=== PATIENT | male | born 1970 | race Caucasian/White ===

== ENCOUNTER → 2016-11-30 | Outpatient (CLI) | payer OTHER | LOC: BMCIMAGING 09:44 | PROVIDERS: ATTEND Internal Medicine Rheumatology | DX: M79.642 Pain in left hand (principal); M25.561 Pain in right knee; M51.26 Other intervertebral disc displacement, lumbar region ==

== ENCOUNTER 2018-10-30 10:34 | Inpatient (IN) | payer OTHER ==
--- NOTE | 2018-10-30 13:03 | EDPHY ---
HPI/HX/ROS/PE/MDM - Data Points Imaging: I viewed and interpreted images myself Narrative: CHIEF COMPLAINT: Rash, arthralgias HPI: This patient is a healthy 48 year old male. Yesterday morning, he developed a very itchy scalp after showering. Following this, he developed a pruritic blotchy rash extended down his neck and back throughout the day. Around 6pm, he had developed arthralgias throughout his body and could barely walk due to discomfort in his left ankle. He took Benadryl and Aleve for relief, and was able to sleep. This morning on waking, he noted continued swelling and pain in his joints. He feels generally weak and fatigued. He endorses chills and night sweats. Denies any recent travel. No exposure to any uvula substances at work. No new medications. No new soaps or detergents. He takes rosuvastatin for hyperlipidemia. He does report have history of possible autoimmune disorder, but this has not been officially diagnosed and he reports unknown specific etiology of symptoms despite follow-up with specialists in the past. He has noted improvement in symptoms with dietary changes. He denies chest pain, shortness of breath, vomiting, diarrhea, urinary complaints or other associated symptoms. REVIEW OF SYSTEMS: A comprehensive 10 system review of systems is otherwise negative aside from elements mentioned in the history of present illness and medical decision making. PMH: Denies / possible autoimmune condition. 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 . at bedside. Does not abuse tobacco, drugs, or alcohol. PHYSICAL EXAM: General:Patient is alert, in no acute distress. ENT:Eyes are normal to inspection. ENT inspection normal. Neck: Normal inspection. Full range of motion. Respiratory:No respiratory distress. Breath sounds normal bilaterally. Cardiovascular: Regular rate and rhythm. Strong peripheral pulses. Normal cap refill. Abdomen:The abdomen is nontender to palpation. There are no peritoneal signs. There are normal bowel sounds. Back: Normal to inspection. No tenderness to palpation. Skin: Redness over the top of the buttocks. Scattered red maculopapular rash over anterior torso and arms. Normal color. Warm and dry. Extremities: Mild swelling and tenderness diffusely across joints. No signs of trauma. Full range of motion. Neuro: Oriented x3. Normal motor function. Normal sensory function. (Bhanu Lam) ED Course: I took over care of this patient at 3:00 p.m.. Please see above for further details. This patient is to be evaluated by Infectious Disease prior to disposition. 4:00 p.m., this patient was seen and evaluated by Infectious Disease doctor Ben Dao. He is asking that we admit the patient to the hospitalist service overnight. He has ordered HIV, syphilis and rheumatoid factor labs on the patient. He wants to evaluate the patient in the hospital in the morning. Hospitalist paged. 4:30 p.m., spoke with on-call hospitalist Dr. Harding. Case discussed in detail with him. He accepts the patient for admission. The patient's remaining emergency department course under my care has been uneventful. The patient was admitted in stable condition. (Prisca Cisneros) This patient is a 48 year old male presenting with arthralgias and rash. Plan for labs including CBC, chemistries, LFTs, coag panel, UA, ESR, CRP, blood cultures, UA. Plan to administer 125mg IV Solumedrol for symptom relief. 13:00 Performed bedside US. Procedure: Bedside US Limited bedside ultrasound was performed and interpreted by myself for the indication of: generalized arthralgias and swelling, r/o pericardial effusion. The exam was performed utilizing the thoracoabdominal emergency ultrasound protocol. Limited transthoracic echocardiogram: The pericardium was visualized and found to be negative for pericardial fluid. The study was negative for pericardial effusion. Limited abdominal ultrasound. 1) The right upper quadrant was visualized and was found to be negative for intraperitoneal fluid. 2) The left upper quadrant was visualized and found to be negative for intraperitoneal fluid. The study was felt to be negative for free intraperitoneal fluid. The images were saved on the ultrasound database. The procedure was performed by myself, Dr. Lam. 14:12 Patient is febrile. Plan to administer 1g PO Tylenol for fever. 14:[address] Dao, infectious disease specialist. He will come to evaluate the patient around 15:30 today. Patient is currently hemodynamically stable. Depending on ID evaluation, plan for admission vs. outpatient followup. 15:00 Care of this patient transferred to Dr. Cisneros at shift change. ( Bhanu Lam) - Data Points Imaging Results: Imaging Impressions Chest X-Ray 10/30/18 13:07 Impression: 1. No active cardiopulmonary disease seen. Laboratory Results: Laboratory Results 10/30/18 14:03 10/30/18 12:58 10/30/18 10/30/18 10/30/18 14:03 14:03 12:58 WBC RBC Hgb Hct 45.0 % % (40.0-51.0) MCV MCH MCHC RDW Plt Count MPV Neut % (Auto) Lymph % (Auto) Hoke % (Auto) Eos % (Auto) Baso % (Auto) Nucleat RBC Rel Count Absolute Neuts (auto) Absolute Lymphs (auto) Absolute Monos (auto) Absolute Eos (auto) Absolute Basos (auto) Absolute Nucleated RBC Immature Gran % Immature Gran # ESR < 1 MM/HR MM/HR (0-15) PT INR APTT Sodium Potassium Chloride Carbon Dioxide Anion Gap BUN Creatinine Estimated GFR Glucose Calcium Ferritin 185.0 ng/mL ng/mL (17.9-464.0) Total Bilirubin Conjugated Bilirubin Unconjugated Bilirubin AST ALT Alkaline Phosphatase C-Reactive Protein 28.6 mg/L H mg/L (<10.0) Total Protein Albumin Streptozyme 80 IU/mL IU/mL (<=200) 10/30/18 10/30/18 10/30/18 12:58 12:58 12:58 WBC 11.64 10^3/uL H 10^3/uL (3.80-9.50) RBC 5.14 10^6/uL 10^6/uL (4.40-6.38) Hgb 16.2 g/dL g/dL (13.7-17.5) Hct 46.7 % % (40.0-51.0) MCV 90.9 fL fL (81.5-99.8) MCH 31.5 pg pg (27.9-34.1) MCHC 34.7 g/dL g/dL (32.4-36.7) RDW 13.0 % % (11.5-15.2) Plt Count 178 10^3/uL 10^3/uL (150-400) MPV 12.0 fL H fL (8.7-11.7) Neut % (Auto) 91.6 % H % (39.3-74.2) Lymph % (Auto) 5.2 % L % (15.0-45.0) Hoke % (Auto) 2.8 % L % (4.5-13.0) Eos % (Auto) 0.0 % L % (0.6-7.6) Baso % (Auto) 0.1 % L % (0.3-1.7) Nucleat RBC Rel Count 0.0 % % (0.0-0.2) Absolute Neuts (auto) 10.65 10^3/uL H 10^3/uL (1.70-6.50) Absolute Lymphs (auto) 0.61 10^3/uL L 10^3/uL (1.00-3.00) Absolute Monos (auto) 0.33 10^3/uL 10^3/uL (0.30-0.80) Absolute Eos (auto) 0.00 10^3/uL L 10^3/uL (0.03-0.40) Absolute Basos (auto) 0.01 10^3/uL L 10^3/uL (0.02-0.10) Absolute Nucleated RBC 0.00 10^3/uL 10^3/uL (0-0.01) Immature Gran % 0.3 % % (0.0-1.1) Immature Gran # 0.04 10^3/uL 10^3/uL (0.00-0.10) ESR PT 13.9 SEC SEC (12.0-15.0) INR 1.05 (0.83-1.16) APTT 25.8 SEC SEC (23.0-38.0) Sodium 136 mEq/L mEq/L (135-145) Potassium 3.9 mEq/L mEq/L (3.5-5.2) Chloride 109 mEq/L mEq/L (97-110) Carbon Dioxide 20 mEq/l L mEq/l (22-31) Anion Gap 7 mEq/L mEq/L (6-14) BUN 25 mg/dL H mg/dL (7-23) Creatinine 0.8 mg/dL mg/dL (0.7-1.3) Estimated GFR > 60 Glucose 138 mg/dL H mg/dL (70-100) Calcium 8.9 mg/dL mg/dL (8.5-10.4) Ferritin Total Bilirubin 1.0 mg/dL mg/dL (0.1-1.4) Conjugated Bilirubin 0.2 mg/dL mg/dL (0.0-0.5) Unconjugated Bilirubin 0.8 mg/dL mg/dL (0.0-1.1) AST 21 IU/L IU/L (17-59) ALT 40 IU/L IU/L (21-72) Alkaline Phosphatase 52 IU/L IU/L (38-126) C-Reactive Protein Total Protein 5.9 g/dL L g/dL (6.3-8.2) Albumin 3.6 g/dL g/dL (3.5-5.0) Streptozyme Medications Given: Discontinued Medications Acetaminophen (Tylenol) 1,000 mg PO EDNOW ONE Stop: 10/30/18 14:13 Last Admin: 10/30/18 14:14 Dose: 1,000 mg Sodium Chloride (Ns) 1,000 mls @ 0 mls/hr IV EDNOW ONE; Wide Open PRN Reason: Protocol Stop: 10/30/18 13:08 Last Admin: 10/30/18 13:18 Dose: 1,000 mls Methylprednisolone Sodium Succinate (Solu-Medrol) 125 mg IVP EDNOW ONE Stop: 10/30/18 13:08 Last Admin: 10/30/18 13:19 Dose: 125 mg Microbiology Results: MICROBIOLOGY 10/30/18 14:07 Nasal, Sinus - Swab Respiratory Panel (PCR) - Final No Organism Detected By Pcr General Time Seen by Provider: 10/30/18 12:45 Initial Vital Signs: Initial Vital Signs Temperature (C) 36.5 C 10/30/18 10:42 Heart Rate 46 L 10/30/18 10:42 Respiratory Rate 18 10/30/18 10:42 Blood Pressure 113/71 10/30/18 10:42 O2 Sat (%) 97 10/30/18 10:42 O2 Delivery Mode Room Air Allergies/Adverse Reactions: No Known Allergies Allergy (Unverified 10/30/18 10:42) Home Medications: Medication Instructions Recorded Rosuvastatin Calcium [Crestor 20mg 20 mg PO HS 10/30/18 (*)] Colchicine 1.2 mg PO DAILY #60 tablet 11/01/18 Hydrocortisone 0.2% Valerate 1 judy TP Q6HRS PRN cream 11/01/18 [Westcort 0.2% Cream (*)] diphenhydrAMINE [Benadryl 25 MG 25 - 50 mg PO Q6HRS PRN cap 11/01/18 (*)] Departure - Departure Disposition: [facility] Clinical Impression: Rash, Reactive arthritis Condition: Good Report Scribed for: Bhanu Lam Report Scribed by: Janina Mauricio Date of Report: 10/30/18 Time of Report: 14:53 Physician Review and Approval Statement: Portions of this note were transcribed by an ED scribe. I personally performed the history, physical exam, and medical decision making; and confirm the accuracy of the information in the transcribed note.
[2018-10-30] MEDS ORDERED: methylPREDNISolone SOD SUCC 125 MG/2 ML VIAL IVP ONE (13:07)
[2018-10-30] MEDS ORDERED: NS 1,000 ML IV ONE (13:07)
[2018-10-30 13:23] LABS: PLATELET COUNT 178 10^3/uL (150-400)
[2018-10-30 13:31] LABS: INR 1.05 (0.83-1.16); PROTIME(PATIENT) 13.9 SEC (12.0-15.0)
--- NOTE | 2018-10-30 13:55 | CPEKG ---
Test Reason : OPEN Blood Pressure : / mmHG Vent. Rate : 073 BPM Atrial Rate : 072 BPM P-R Int : 153 ms QRS Dur : 091 ms QT Int : 406 ms P-R-T Axes : 073 -52 049 degrees QTc Int : 448 ms Sinus rhythm Left anterior fascicular block Abnormal R-wave progression, early transition Confirmed by Bhanu Lam ([id number]) on 10/30/2018 1:54:48 PM Referred By: Bhanu Lam Confirmed By:Bhanu Lam
[2018-10-30] MEDS ORDERED: ACETAMINOPHEN 500 MG TAB PO ONE (14:12)
--- NOTE | 2018-10-30 15:30 | PDCONSULT ---
Line Tender Note: Infectious Diseases Consult Note Impression: 48-year-old man with migrating poly arthralgias with a rapidly evolving rash. Infectious differential includes acute rheumatic fever, although less likely with a normal ASO. Ruling out HIV infection and syphilis infection as possibilities. Rheumatologic condition or inherited periodic febrile syndrome or possible, particularly considering his [place] heritage. Do not see an indication for IV antibiotics at this point as this is more consistent with an noninfectious inflammatory syndrome, will continue to follow through tomorrow and ensure longitudinal follow-up. 1. 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 Systemic rash and febrile syndrome with out LFT changes or thrombocytopenia 3. History of unclear autoimmune type condition 4. Neutrophilic leukocytosis Plan: 1. Agree with corticosteroid use 2. Sent ferritin level and ASO 3. Send HIV, syphilis antibodies, MARTI, rheumatoid factor 4. ID will follow and ensure longitudinal follow-up 5. No absolute indication for IV antibiotics at this time Ben Dao MD Infectious Diseases Chief Complaint: Fever Requesting Provider: Reason for Referral: Consultation was requested by regarding antimicrobial management. HPI: 48-year-old man who presents with approximately 1 day of fevers, migrating arthralgias, and migrating rash. He was in his usual state of good health until the evening prior to this ED visit when he noted rash over his forehead with some pruritus and joint pains in his ankles bilaterally knees bilaterally and wrists bilaterally. He also notes swelling and pain in the joints of his fingers to the degree that he was unable to pick things of the evening prior to admission. He took Benadryl in the evening and was able to sleep some, but woke in the morning to pain primarily in the right ankle which had migrated from pain primarily in the left ankle, and a rash that had changed from over his face and neck is to his trunk, then to his upper and lower extremities. He notes fever starting last evening as well that continued into today. He has a very mild dull sensation of headache that is new and also photophobia, but no neck stiffness or pain. Notes no allergies in the past and he has not started any new medications, no new soaps or detergents, and no other new items that would have contacted diffusely over his body. Currently his joint pain is directed towards his right ankle which remains swollen in his bilateral wrists which are both swollen and have a more intense rash. Overall he feels the swelling in his joints is decreased except that his wrist. He does notice well a rash over his sacrum that developed last evening and persists through today. He has never had a syndrome like this in the past. He has not with recurrent abdominal discomfort for many years that seems to be associated with constipation that is larger resolved with dietary changes that were self prescribed. Approximately 15 years ago he 1st developed vague symptoms that were thought to be related to an autoimmune condition but were unable to be diagnosed definitively. His notes that any viral illnesses seem to affect him disproportionately, including a year where both he and their son with cystic fibrosis developed influenza H1N1 with their son having a relatively mild illness and the patient requiring hospitalization. He denies sinus fullness, sore throat although he did have difficulty swallowing acetaminophen but was able to eat his dinner last evening and then some chips while in the waiting room today. No cough, chest pain, diarrhea, dysuria. 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 ROS: 10 organ systems reviewed; pertinent positives and negatives listed in the HPI, all other organ systems negative. Physical Exam: VS: Reviewed Gen: No acute distress; Breathing comfortably without exogenous oxygen; Able to speak in complete sentences Eyes: No conjunctival injection; No scleral icterus; keeps his eyes closed with the overhead light on in the room but able to open without irritation on the overhead light is off HENT: No gross deformities Neck: No limitation in range of motion Pulm: Breath sounds clear to the bases bilaterally; No wheeze, rhonchi, or rales CV: Normal S1 and S2; Regular rate and rhythm; No murmurs, rubs, or gallops; No lower extremity edema Abd: Not distended; Normo-active bowel sounds; Soft; Non-tender Skin: A full skin exam including exposed bilateral upper extremities, bilateral lower extremities to the knees, face, neck, abdomen, chest, and back performed; erythematous macules and patches with a circular lesion of approximately 2 cm diameter over the medial aspect of the left knee, with 2-3 smaller satellite type erythematous macules around the left knee, the anterior aspect of both wrists with erythematous macules that sam to palpation, erythematous patch at the sacrum extending to the superior portion of the gluteal fold; erythematous macules over the extensor surfaces of the elbows bilaterally MSK: Bilateral wrists with erythema and edema common hands bilaterally extending to the fingers swollen without erythema, right ankle with edema over the medial and lateral malleoli, bilateral knees without edema or joint effusions, left ankle without edema or effusion, no edema or joint effusion of the elbows or shoulders Ext: No clubbing or cyanosis Neuro: Awake and alert Psych: Normal mood and affect Labs/Imaging: All microbiology testing (culture and non-culture) reviewed in the medical record. Personally reviewed and interpreted the images of the following radiographs: Chest x-ray from 10/30 showing clear lung dal[place]. Selected Entries 10/30/18 10/30/18 12:00 14:17 Temperature (C) 38.3 C Blood Pressure 106/72 Mean Arterial 117 H Pressure (MAP) Laboratory Tests 07/05/16 11/30/16 11/30/16 07:21 09:28 09:28 WBC 7.90 Hgb 16.0 Plt Count 236 Absolute Neuts (auto) 4.48 Absolute Lymphs (auto) 2.74 Absolute Eos (auto) 0.14 ESR 6 Creatinine Total Bilirubin 0.5 AST 23 ALT 38 Ferritin C-Reactive Protein < 5.0 IgA Rheum Factor Semi-Quant < 8.6 Anti-Cycl Citrul Peptide MARTI Titer Tiss Transglutamin IgA HLA-B27 HLA-DQA1 Streptozyme 11/30/16 11/30/16 10/30/18 09:28 09:28 12:58 WBC 11.64 H Hgb 16.2 Plt Count 178 Absolute Neuts (auto) 10.65 H Absolute Lymphs (auto) 0.61 L Absolute Eos (auto) 0.00 L ESR Creatinine Total Bilirubin AST ALT Ferritin C-Reactive Protein IgA 224 Rheum Factor Semi-Quant Anti-Cycl Citrul Peptide < 15.6 MARTI Titer <1:40 Tiss Transglutamin IgA <1.2 HLA-B27 Negative HLA-DQA1 01,03 Streptozyme 10/30/18 10/30/18 10/30/18 12:58 12:58 14:03 WBC Hgb Plt Count Absolute Neuts (auto) Absolute Lymphs (auto) Absolute Eos (auto) ESR < 1 Creatinine 0.8 Total Bilirubin 1.0 AST 21 ALT 40 Ferritin C-Reactive Protein 28.6 H IgA Rheum Factor Semi-Quant Anti-Cycl Citrul Peptide MARTI Titer Tiss Transglutamin IgA HLA-B27 HLA-DQA1 Streptozyme 10/30/18 14:03 WBC Hgb Plt Count Absolute Neuts (auto) Absolute Lymphs (auto) Absolute Eos (auto) ESR Creatinine Total Bilirubin AST ALT Ferritin Pending C-Reactive Protein IgA Rheum Factor Semi-Quant Anti-Cycl Citrul Peptide MARTI Titer Tiss Transglutamin IgA HLA-B27 HLA-DQA1 Streptozyme Pending
[2018-10-30] MEDS ORDERED: ONDANSETRON 4 MG/2 ML VIAL IVP PRN (17:27)
[2018-10-30] MEDS ORDERED: ONDANSETRON DISINTEGRATING 4 MG TAB PO PRN (17:27)
--- NOTE | 2018-10-30 17:49 | PDGENHP ---
History and Physical - Chief Complaint Fevers, arthralgia, migrating rash - History of Present Illness HPI: This is a 48 y/o male with no significant past medical history presenting to the emergency via private vehicle after experiencing a 1-day episode of fevers, arthralgia and migrating rash. Yesterday, he noticed a pruritic rash on his scalp after showering. He went to work and thought nothing much about the rash however as the day progressed, the rash then seemed to spread throughout his body to his back, abdomen, sacrum, wrists, knees and ankles. By nighttime, he developed arthralgia and swelling most notably to his wrists and ankles and took Benadryl and Aleve so he could sleep. During the night, he endorses fevers and night sweats. He woke up this morning and confirmed mild improvement to his condition but continues to have a rash and joint swelling notable to left wrist and right ankle. Supposedly, he has had similar symptoms 15 years prior and was thought possibly autoimmune but with no definitive answer. No recent travels, no new medications, no new soap or detergents. He endorses fevers, night sweats. Denies chest pains, palpitations, nausea, vomiting, diarrhea. He is being admitted for observation and monitoring. Past Medical History: Hyperlipidemia, possible autoimmune disorder Past Surgical History: Knee scope (a few years ago) Social: , lives in [place]. Denies etoh, tobacco or illicit drug use. Works at the [employer]. History Information - Allergies/Home Medication List Allergies/Adverse Reactions: No Known Allergies Allergy (Unverified 10/30/18 10:42) Home Medications: Rosuvastatin Calcium [Crestor 20mg (*)] 20 mg PO HS 10/30/18 [Last Taken ] I have personally reviewed and updated: family history, medical history, social history, surgical history Past Medical History: See HPI list - Surgical History Additional surgical history: See HPI list - Family History Additional family history: Son with DM I and cystic fibrosis. Mother rheumatoid arthritis. Father nerve problems - Social History Smoking Status: Never smoked Alcohol Use: None Drug Use: None Review of Systems Review of Systems: ROS: 10pt was reviewed & negative except for what was stated in HPI & below Skin: Reports: change in color (reports sensation is like scalding coffee) Physical Exam Physical Exam: Lab data and imaging were reviewed. Case discussed with admitting physician, Dr. Julio C Harding Per ED note, bedside US revealed generalized arthralgias and swelling, r/o pericardial effusion and abdominal ultrasound RUQ no intraperitoneal fluid, LUQ negative for intraperitoneal fluid. WBC: 11.64 ESR: <1 CRP: 28.6 CXR: no Acute processes EKG: SR, LAFB RF: 9.6 Resp panel PCR: Negative Temp Pulse Resp BP Pulse Ox 37.3 C 70 16 108/72 94 10/30/18 16:36 10/30/18 16:36 10/30/18 16:36 10/30/18 16:36 10/30/18 16:36 Constitutional: uncomfortable, other (Pleasant, cooperative gentleman who appears fatigued and weak) Eyes: PERRL, anicteric sclera, EOMI Ears, Nose, Mouth, Throat: moist mucous membranes, hearing normal, ears appear normal, no oral mucosal ulcers Cardiovascular: regular rate and rhythym, no murmur, rub, or gallop, No edema Peripheral Pulses: 2+: dorsalis-pedis (R) (Radial 2+), dorsalis-pedis (L) ( Radial 2+) Respiratory: no respiratory distress, no rales or rhonchi, clear to auscultation Gastrointestinal: normoactive bowel sounds, soft, non-tender abdomen, no palpable masses Genitourinary: no bladder fullness, no bladder tenderness Skin: erythema, rash Musculoskeletal: joint effusion, joint tenderness, pain with ROM Neurologic: AAOx3, sensation intact bilaterally, CN II-XII Intact Psychiatric: interacting appropriately, not anxious, not encephalopathic, thought process linear Lymph, Heme, Immunologic: no cervical LAD, no supraclavicular LAD Lab Data & Imaging Review 10/30/18 14:03 10/30/18 12:58 WBC 11.64 10^3/uL (3.80-9.50) H 10/30/18 12:58 RBC 5.14 10^6/uL (4.40-6.38) 10/30/18 12:58 Hgb 16.2 g/dL (13.7-17.5) 10/30/18 12:58 Hct 45.0 % (40.0-51.0) 10/30/18 14:03 MCV 90.9 fL (81.5-99.8) 10/30/18 12:58 MCH 31.5 pg (27.9-34.1) 10/30/18 12:58 MCHC 34.7 g/dL (32.4-36.7) 10/30/18 12:58 RDW 13.0 % (11.5-15.2) 10/30/18 12:58 Plt Count 178 10^3/uL (150-400) 10/30/18 12:58 MPV 12.0 fL (8.7-11.7) H 10/30/18 12:58 Neut % (Auto) 91.6 % (39.3-74.2) H 10/30/18 12:58 Lymph % (Auto) 5.2 % (15.0-45.0) L 10/30/18 12:58 [place] % (Auto) 2.8 % (4.5-13.0) L 10/30/18 12:58 Eos % (Auto) 0.0 % (0.6-7.6) L 10/30/18 12:58 Baso % (Auto) 0.1 % (0.3-1.7) L 10/30/18 12:58 Nucleat RBC Rel Count 0.0 % (0.0-0.2) 10/30/18 12:58 Absolute Neuts (auto) 10.65 10^3/uL (1.70-6.50) H 10/30/18 12:58 Absolute Lymphs (auto) 0.61 10^3/uL (1.00-3.00) L 10/30/18 12:58 Absolute Monos (auto) 0.33 10^3/uL (0.30-0.80) 10/30/18 12:58 Absolute Eos (auto) 0.00 10^3/uL (0.03-0.40) L 10/30/18 12:58 Absolute Basos (auto) 0.01 10^3/uL (0.02-0.10) L 10/30/18 12:58 Absolute Nucleated RBC 0.00 10^3/uL (0-0.01) 10/30/18 12:58 Immature Gran % 0.3 % (0.0-1.1) 10/30/18 12:58 Immature Gran # 0.04 10^3/uL (0.00-0.10) 10/30/18 12:58 ESR < 1 MM/HR (0-15) 10/30/18 14:03 PT 13.9 SEC (12.0-15.0) 10/30/18 12:58 INR 1.05 (0.83-1.16) 10/30/18 12:58 APTT 25.8 SEC (23.0-38.0) 10/30/18 12:58 Sodium 136 mEq/L (135-145) 10/30/18 12:58 Potassium 3.9 mEq/L (3.5-5.2) 10/30/18 12:58 Chloride 109 mEq/L (97-110) 10/30/18 12:58 Carbon Dioxide 20 mEq/l (22-31) L 10/30/18 12:58 Anion Gap 7 mEq/L (6-14) 10/30/18 12:58 BUN 25 mg/dL (7-23) H 10/30/18 12:58 Creatinine 0.8 mg/dL (0.7-1.3) 10/30/18 12:58 Estimated GFR > 60 10/30/18 12:58 Glucose 138 mg/dL (70-100) H 10/30/18 12:58 Calcium 8.9 mg/dL (8.5-10.4) 10/30/18 12:58 Ferritin 185.0 ng/mL (17.9-464.0) 10/30/18 14:03 Total Bilirubin 1.0 mg/dL (0.1-1.4) 10/30/18 12:58 Conjugated Bilirubin 0.2 mg/dL (0.0-0.5) 10/30/18 12:58 Unconjugated Bilirubin 0.8 mg/dL (0.0-1.1) 10/30/18 12:58 AST 21 IU/L (17-59) 10/30/18 12:58 ALT 40 IU/L (21-72) 10/30/18 12:58 Alkaline Phosphatase 52 IU/L (38-126) 10/30/18 12:58 C-Reactive Protein 28.6 mg/L (<10.0) H 10/30/18 12:58 Total Protein 5.9 g/dL (6.3-8.2) L 10/30/18 12:58 Albumin 3.6 g/dL (3.5-5.0) 10/30/18 12:58 Rheum Factor Semi-Quant 9.6 IU/L (<12.0) 10/30/18 14:02 Streptozyme 80 IU/mL (<=200) 10/30/18 14:03 Assessment & Plan Plan: This is a 48 y/o male with no past medical history presenting with acute onset of fevers, arthralgia and migrating rash. Supposedly he had similar symptoms 15 years ago with no definitive answer as to what it could be. He endorses generalized fatigue and weakness. Differential diagnoses are the following but not limited to: reactive arthritis, rheumatoid arthritis, syphilis. 1. Arthralgia and migrating rash: ID Dr. Dao has evaluated pt. IV abx not recommended at this time. -Pt febrile while in ED at 38.3. Tylenol 1g given and has since been afebrile at 36.7 which I personally took one hour ago. -Received IVP 125mg Solu-Medrol in ED; will hold on any other steroids until tomorrow. Will review AM CRP. Consider continue PO steroids in AM. CRP tonight is 28.6, ESR <1. CBC/BMP in AM. We will treat acute symptoms however the pt may need to f/u outpatient with ID and hematology. -Benadryl and Tylenol PRN -Respiratory panel negative -Blood culture pending -DNA/UA/HIV/MARTI/Syphilis pending; Rheumatoid factor 9.6 -Mild leukocytosis (11.64) 2. Hyperlipidemia: on rosuvastatin Diet: Regular Code: Full VTE ppx: Lovenox subq Dispo: Admit to obs
--- NOTE | 2018-10-30 17:49 | HOSPPROG ---
Hospitalist Progress Note Assessment/Plan: 48 yo Male admitted with systemic rash and arthralgias. Pt seen with our [employer] DEVELOPER. Agree with her H&P and A&P per her note. intermittent fever ID is following #Fever #Systemic Rash #Arthralgias Etiology is unclear W/u is pending ID is following, decision for abx per ID not on any home meds Subjective: no cp or sob. no n/v. +fever Objective: Vital Signs Temp Pulse Resp BP Pulse Ox 37.3 C 70 16 108/72 94 10/30/18 16:36 10/30/18 16:36 10/30/18 16:36 10/30/18 16:36 10/30/18 16:36 PT 13.9 SEC (12.0-15.0) 10/30/18 12:58 INR 1.05 (0.83-1.16) 10/30/18 12:58 - Physical Exam Constitutional: no apparent distress Eyes: PERRL, EOMI Ears, Nose, Mouth, Throat: moist mucous membranes, hearing normal Cardiovascular: regular rate and rhythym, No edema Respiratory: no respiratory distress Gastrointestinal: No distension Skin: warm Neurologic: AAOx3 Psychiatric: interacting appropriately, not anxious, not encephalopathic ICD10 Worksheet Patient Problems: Problems Problem Status Onset Rash Acute Reactive arthritis Acute
[2018-10-31 05:24] LABS: PLATELET COUNT 164 10^3/uL (150-400)
[2018-10-31] MEDS: diphenhydrAMINE 25 MG CAP PO PRN ×3 (07:21→20:22)
[2018-10-31] MEDS: ENOXAPARIN 40 MG/0.4 ML SYR SC SCH (07:22)
--- NOTE | 2018-10-31 09:30 | PCMIDPN ---
Assessment/Plan: Assessment: 48-year-old man with migrating polyarthralgias in rash without a clear underlying diagnosis. Overall is improved with a single dose of steroids in the emergency department yesterday with no evidence for an infection. S normal ferritin level suggests this is not at all onset Still's disease and negative rheumatoid factor make rheumatoid arthritis less likely. Serologic testing remains in process which can be followed as an outpatient. 1. 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 Systemic rash in febrile syndrome without LFT changes or thrombocytopenia; improved the 3. History of an unclear autoimmune type condition 4. Neutrophilic leukocytosis present on 80 presentation, increased neutrophilia likely related to steroid dose Plan: 1. Will follow pending HIV testing informed patient of result 2. From ID perspective can discharge; would discharge with prednisone 20 mg per day x1 week 3. ID follow-up being arranged and will further inform need for steroids and further evaluation as an outpatient Ben Dao MD Infectious Diseases 10/31/18 09:34 Subjective: No fever or chills since yesterday. Overall feels better with resolution of photophobia. Right ankle pain has resolved but still feel stiff, left ankle pain completely resolved. No swelling in the knees bilaterally but does still feel it is most joints are stiff. Overall his wrist swelling is decreased but not resolved. States the erythematous lesions on the anterior aspect of the wrist formed blisters in draining clear fluid. The rash and pruritus of now extending to his neck and return to his scalp which is where the lesions initially began. Objective: Vital Signs Temp Pulse Resp BP Pulse Ox 36.8 C 82 12 98/71 L 97 10/31/18 07:47 10/31/18 07:47 10/31/18 07:47 10/31/18 07:47 10/31/18 07:47 Laboratory Results 10/31/18 05:04 10/31/18 05:04 10/30/18 10/31/18 11/01/18 05:59 05:59 05:59 Intake Total 240 Output Total 1050 Balance -810 ESR < 1 MM/HR (0-15) 10/30/18 14:03 C-Reactive Protein 71.0 mg/L (<10.0) H 10/31/18 05:04 Microbiology 10/30/18 14:07 Nasal, Sinus - Swab Respiratory Panel (PCR) - Final No Organism Detected By Pcr Laboratory Tests 10/30/18 10/30/18 10/30/18 12:58 12:58 12:58 WBC 11.64 H Hgb 16.2 Plt Count 178 Absolute Neuts (auto) 10.65 H Absolute Lymphs (auto) 0.61 L Absolute Eos (auto) 0.00 L Creatinine 0.8 AST 21 ALT 40 C-Reactive Protein 28.6 H Total Protein 5.9 L Rheum Factor Semi-Quant MARTI Screen Anti-ds DNA IgG Ab Syphilis IgG/IgM Ab HIV (1&2) Ag & Ab Refer Streptozyme 10/30/18 10/30/18 10/30/18 14:02 14:03 16:30 WBC Hgb Plt Count Absolute Neuts (auto) Absolute Lymphs (auto) Absolute Eos (auto) Creatinine AST ALT C-Reactive Protein Total Protein Rheum Factor Semi-Quant 9.6 MARTI Screen Anti-ds DNA IgG Ab Syphilis IgG/IgM Ab NONREACTIVE HIV (1&2) Ag & Ab Refer Streptozyme 80 10/30/18 10/30/18 10/31/18 17:17 17:17 05:04 WBC 14.07 H Hgb 14.5 Plt Count 164 Absolute Neuts (auto) 12.38 H Absolute Lymphs (auto) 1.09 Absolute Eos (auto) 0.00 L Creatinine AST ALT C-Reactive Protein Total Protein Rheum Factor Semi-Quant MARTI Screen Pending Anti-ds DNA IgG Ab Pending Syphilis IgG/IgM Ab HIV (1&2) Ag & Ab Refer Pending Streptozyme 10/31/18 05:04 WBC Hgb Plt Count Absolute Neuts (auto) Absolute Lymphs (auto) Absolute Eos (auto) Creatinine 0.7 AST ALT C-Reactive Protein 71.0 H Total Protein Rheum Factor Semi-Quant MARTI Screen Anti-ds DNA IgG Ab Syphilis IgG/IgM Ab HIV (1&2) Ag & Ab Refer Streptozyme - Physical Exam General Appearance: no apparent distress, non-toxic EENT: other (No oropharyngeal erythema, no tonsillar enlargement), No scleral icterus, No photophobia, No thrush Respiratory: lungs clear, normal breath sounds, No respiratory distress, No crackles, No wheezing Neck: full range of motion, supple Cardiac/Chest: regular rate, rhythm, No bradycardia, No tachycardia, No diastolic murmur, No systolic murmur Extremities: other (Edema of the wrists bilaterally, improved from yesterday; anterior wrist erythematous lesions without surrounding erythema; large erythematous blanching patch on the left anterior forearm, scattered erythematous patches on the lower extremities; right ankle edema has resolved, no left ankle edema; no edema or joint effusions in the knees bilaterally; no joint swelling or effusion of the elbows bilaterally) Abdomen: normal bowel sounds, non-tender, soft, No distended, No guarding, No hepatomegaly, No splenomegaly Skin: other (Scattered erythematous patches and plaques the bilateral upper lower extremities; sparing of the anterior and posterior trunk; neck with blanching erythematous macules) Neuro/Psych: alert, normal mood/affect, oriented x 3, No confused - Time Spent With Patient Time Spent with Patient: greater than 35 minutes Time Spent with Patient: Greater than 35 minutes spent on this patients care, greater than 50% of time spent counseling, educating, and coordinating care regarding the above mentioned plan. ICD10 Worksheet Patient Problems: Problems Problem Status Onset Rash Acute Reactive arthritis Acute
--- NOTE | 2018-10-31 10:29 | ASMTCMCOM ---
CM Note CM Note Notes: Pt is a 48 y/o man admitted for fever, arthralgia, and migrating rash. ID has been consulted. ID is recommending prednisone 20mg/daily for 1 week. Pt should not have any d/c needs. CM available for changes. Plan: Independent Date Signed: 10/31/2018 10:29 AM Electronically Signed By:LILO Reis
[2018-10-31] MEDS ORDERED: predniSONE 20 MG TAB PO SCH (11:45)
[2018-10-31] MEDS: ACETAMINOPHEN 325 MG TAB PO PRN ×2 (11:47→17:22)
--- NOTE | 2018-10-31 13:31 | HOSPPROG ---
Hospitalist Progress Note Assessment/Plan: This is a 48 y/o male with no significant past medical history presenting to the emergency via private vehicle after experiencing a 1-day episode of fevers, arthralgia and migrating polyarthralgia and rash. Yesterday, he noticed a pruritic rash on his scalp after showering that progressed. 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 This morning he felt better, but now is feeling poorly, needs to keep his eyes closed due to the discomfort of opening them. Will get an MRI today, reviewed his care w Dr Meyers. Subjective: Obi is feeling poorly, feels like his scalp is swelling, has some tenderness at the base of his neck. Left thumb is tender. Objective: Vital Signs Temp Pulse Resp BP Pulse Ox 37.4 C 93 32 H 124/74 H 97 10/31/18 13:00 10/31/18 13:00 10/31/18 11:44 10/31/18 13:00 10/31/18 13:00 Laboratory Results 10/31/18 05:04 10/31/18 05:04 10/30/18 10/31/18 11/01/18 05:59 05:59 05:59 Intake Total 240 Output Total 1050 Balance -810 PT 13.9 SEC (12.0-15.0) 10/30/18 12:58 INR 1.05 (0.83-1.16) 10/30/18 12:58 - Physical Exam Constitutional: uncomfortable Ears, Nose, Mouth, Throat: hearing normal Cardiovascular: regular rate and rhythym Respiratory: no respiratory distress Gastrointestinal: normoactive bowel sounds Skin: warm, other (top of his head is reddened, 3 small blisters on left wrist area, bicep areas are reddened) Neurologic: AAOx3 Psychiatric: interacting appropriately ICD10 Worksheet Patient Problems: Problems Problem Status Onset Rash Acute Reactive arthritis Acute
[2018-10-31] MEDS ORDERED: GADOBUTROL 10 ML VIAL IVP ONE (16:18)
[2018-10-31] MEDS: COLCHICINE 0.6 MG CAP/TAB PO SCH (17:22)
--- NOTE | 2018-10-31 20:47 | PDMN ---
Medical Necessity Medical necessity: Change to inpt as of 10/31/18 @ 16:10, meets inpt criteria per MD order and Systemic or infectious condition GRG. 48 y/o admitted w/ systemic gracie in febrile syndrome and migrating poly arthralgias and arthritis of lg joints. Upgraded to inpt for persistent rash, poly arthralgias, feelings of head/scalp swelling, MRI today shows deep scalp edema, further workup needed , est LOS>2MN for ongoing eval/management of above.
[2018-10-31] MEDS ORDERED: ROSUVASTATIN CALCIUM 20 MG TAB PO SCH (21:00)
[2018-11-01] MEDS: diphenhydrAMINE 25 MG CAP PO PRN (04:56)
[2018-11-01] MEDS: ACETAMINOPHEN 325 MG TAB PO PRN (04:56)
[2018-11-01 05:55] LABS: PLATELET COUNT 176 10^3/uL (150-400)
[2018-11-01] MEDS: ENOXAPARIN 40 MG/0.4 ML SYR SC SCH (08:25)
[2018-11-01] MEDS: COLCHICINE 0.6 MG CAP/TAB PO SCH (08:25)
[2018-11-01] MEDS ORDERED: HYDROCORTISONE 0.2% VALERATE CREAM TP PRN (11:27)
--- NOTE | 2018-11-01 11:27 | PCMIDPN ---
Assessment/Plan: Assessment: 48-year-old man with migrating polyarthralgias in rash without a clear underlying diagnosis. Although his underlying diagnosis remains unclear he does have a syndrome that is consistent with the auto inflammatory condition. Removed prednisone and other corticosteroids, systemically, from his medication list and will assess his response to colchicine. Left to give at least through this afternoon to determine if his symptoms will recur and/or if he needs an increased dose of colchicine. Remains no compelling indication that this is infectious syndrome that would warrant antibiotics. Reviewed the MRI personally there is no evidence for meningeal enhancement to suggest meningitis, and his photophobia has again resolved at least through the morning. Unclear significance of soft tissue swelling but it did correlate with where his symptoms were located yesterday. Will follow up again this afternoon to determine if dose change for colchicine necessary. 1. 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 Systemic rash in febrile syndrome without LFT changes or thrombocytopenia; improved the 3. History of an unclear autoimmune type condition 4. Neutrophilic leukocytosis present on presentation; stable Plan: 1. Continue colchicine 1.2 mg daily; increase to 2.4 mg for today's dose if symptoms return 2. Informed patient of negative HIV and syphilis test and Ben Dao MD Infectious Diseases 11/01/18 11:29 Subjective: No fever or chills yesterday or overnight. Migrating rash continues now to include his back and right flank. His posterior scalp pain and itching arm proved. Overall his pruritus is generally worse. He has no diarrhea with his dose of colchicine yesterday. No new symptoms today. Objective: Vital Signs Temp Pulse Resp BP Pulse Ox 36.8 C 74 16 94/63 L 94 11/01/18 08:00 11/01/18 08:00 11/01/18 08:00 11/01/18 08:00 11/01/18 08:00 Laboratory Results 11/01/18 05:02 11/01/18 05:02 10/31/18 11/01/18 11/02/18 05:59 05:59 05:59 Intake Total 2500 Balance 2500 ESR < 1 MM/HR (0-15) 10/30/18 14:03 C-Reactive Protein 71.0 mg/L (<10.0) H 10/31/18 05:04 Laboratory Tests 10/30/18 10/30/18 10/30/18 12:58 12:58 14:02 WBC Hgb Plt Count Absolute Neuts (auto) Absolute Lymphs (auto) Creatinine 0.8 Lactate Dehydrogenase C-Reactive Protein 28.6 H Rheum Factor Semi-Quant 9.6 MARTI Screen Syphilis IgG/IgM Ab HIV (1&2) Ag & Ab Refer Streptozyme 10/30/18 10/30/18 10/30/18 14:03 16:30 17:17 WBC Hgb Plt Count Absolute Neuts (auto) Absolute Lymphs (auto) Creatinine Lactate Dehydrogenase C-Reactive Protein Rheum Factor Semi-Quant MARTI Screen Syphilis IgG/IgM Ab NONREACTIVE HIV (1&2) Ag & Ab Refer NEGATIVE Streptozyme 80 10/30/18 10/31/18 10/31/18 17:17 05:04 05:04 WBC 14.07 H Hgb 14.5 Plt Count 164 Absolute Neuts (auto) 12.38 H Absolute Lymphs (auto) 1.09 Creatinine 0.7 Lactate Dehydrogenase C-Reactive Protein 71.0 H Rheum Factor Semi-Quant MARTI Screen 0.23 Syphilis IgG/IgM Ab HIV (1&2) Ag & Ab Refer Streptozyme 11/01/18 11/01/18 11/01/18 05:02 05:02 05:02 WBC 12.50 H Hgb 14.7 Plt Count 176 Absolute Neuts (auto) 9.93 H Absolute Lymphs (auto) 2.05 Creatinine 0.9 Lactate Dehydrogenase 500 C-Reactive Protein Rheum Factor Semi-Quant MARTI Screen Syphilis IgG/IgM Ab HIV (1&2) Ag & Ab Refer Streptozyme - Physical Exam General Appearance: no apparent distress, thin, non-toxic EENT: No scleral icterus Respiratory: lungs clear, normal breath sounds, No respiratory distress, No crackles, No wheezing Neck: full range of motion, supple Cardiac/Chest: regular rate, rhythm, No bradycardia, No tachycardia, No diastolic murmur, No systolic murmur Abdomen: normal bowel sounds, non-tender, soft, No distended, No guarding Skin: rash, erythema Neuro/Psych: alert, normal mood/affect, oriented x 3, No confused - Time Spent With Patient Time Spent with Patient: greater than 35 minutes Time Spent with Patient: Greater than 35 minutes spent on this patients care, greater than 50% of time spent counseling, educating, and coordinating care regarding the above mentioned plan. ICD10 Worksheet Patient Problems: Problems Problem Status Onset Rash Acute Reactive arthritis Acute
--- NOTE | 2018-11-01 15:17 | HOSPPROG ---
Hospitalist Progress Note Assessment/Plan: This is a 48 y/o male with no significant past medical history presenting to the emergency via private vehicle after experiencing a 1-day episode of fevers, arthralgia and migrating polyarthralgia and rash. He noticed a pruritic rash on his scalp after showering that progressed. 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 He has an appointment next week Subjective: Obi is feeling much better today, still has the rash, but topical hydrocortisone is helping. Objective: Vital Signs Temp Pulse Resp BP Pulse Ox 36.7 C 68 16 103/78 97 11/01/18 11:31 11/01/18 11:31 11/01/18 11:31 11/01/18 11:31 11/01/18 11:31 Laboratory Results 11/01/18 05:02 11/01/18 05:02 10/31/18 11/01/18 11/02/18 05:59 05:59 05:59 Intake Total 2500 Balance 2500 PT 13.9 SEC (12.0-15.0) 10/30/18 12:58 INR 1.05 (0.83-1.16) 10/30/18 12:58 - Physical Exam Constitutional: no apparent distress, appears nourished, uncomfortable Eyes: PERRL Ears, Nose, Mouth, Throat: hearing normal Respiratory: no respiratory distress Skin: warm, rash (mulitple areas including right back area, biceps, abd chest; it's a flat smooth red rash that varies in size) Neurologic: AAOx3 Psychiatric: interacting appropriately ICD10 Worksheet Patient Problems: Problems Problem Status Onset Rash Acute Reactive arthritis Acute
[2018-11-01] MEDS ORDERED: COLCHICINE 0.6 MG CAP/TAB PO ONE (16:06)
[2018-11-01 16:08] VITALS: BP 96/73
--- NOTE | 2018-11-01 16:47 | GDS ---
[f rep st] DISCHARGE SUMMARY DISCHARGE DIAGNOSES: 1. 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 2. Systemic rash with afebrile syndrome. 3. History of unclear autoimmune type condition. 4. Leukocytosis. 5. Hyperlipidemia. HISTORY OF PRESENT ILLNESS: Briefly, Obi is a very nice 48-year-old gentleman with no significant past medical history, who presented to the emergency room after experiencing a 1-day episode of fevers, arthralgias, and migrating polyarthralgia, and rash. He noticed a rash on his scalp after his showering that progressed. He was treated with prednisone without much improvement. He was starting to feel like his head and neck were swelling during his hospital stay. A brain MRI was performed that showed bilateral posterior deep scalp soft tissue abnormal signal intensity, edema, and enhancement which is nonspecific. Different diagnoses include autoimmune disorder, scalp lymphoma, anasarca among other etiologies. He had no acute infarct, acute hemorrhage, or hydrocephalus. It is not clear if this is a familial Mediterranean fever presentation. The patient will get further workup with Dr. Dao in the outpatient setting. What has helped significantly is starting the patient on colchicine. He will be discharged home on this medication. Reviewed with him the side effects of this medication. He will follow up with Dr. Dao in the outpatient setting. HOSPITAL COURSE: Per problem: 1. Migrating polyarthralgia and arthritis of large joints. He is markedly better after starting on the colchicine. He does not have a specific diagnosis. He is to get genetic testing next week in the outpatient setting. 2. Systemic rash. He has multiple reddened areas all over his body. He has some blisters in his left wrist area. Benadryl and topical hydrocortisone have helped with the rash. 3. History of unclear autoimmune type condition. HIV is negative. 4. Leukocytosis. White blood cell count 12.5. 5. Hyperlipidemia. Resumed his statin. DISCHARGE CONDITION: Stable. Blood pressure is 103/78, heart rate is 68, respiratory rate is 16, O2 sats on room air 97%, temperature is 36.7 Celsius. MEDICATION AT DISCHARGE: Please see the EMR. DISCHARGE INSTRUCTIONS: 1. Follow up with Dr. Dao next week. 2. If he starts to feel more poorly or feels like the swelling and rash are getting worse, to contact Dr. Dao immediately. /[id number]/MODL MTDD
== END 2018-11-01 18:15 | disposition home or self-care (01) | DRG 554 ==
LOC: F1N 17:54 → OBSVTOIN 10-31 16:10
PROVIDERS: ADMIT Family Medicine; ATTEND Student in an Organized Health Care Education/Training Program
DX: M13.0 Polyarthritis, unspecified (principal); R21 Rash and other nonspecific skin eruption; E78.5 Hyperlipidemia, unspecified; Z86.2 Personal history of diseases of the blood and blood-forming organs and certain disorders involving the immune mechanism; R50.9 Fever, unspecified; E86.0 Dehydration; D72.829 Elevated white blood cell count, unspecified
CPT/HCPCS: 86225-90; 96374; A9585; G0378; J1650; J2930; J7512